=== PATIENT | female | born 1995 | race Two or more races ===

== ENCOUNTER 2023-06-09 17:44 | Emergency (ER) | payer OTHER ==
[~2023-06-09] VITALS: Ht 165.1 cm; Wt 131.5 kg
[~2023-06-09 17:44] MED LIST: FLOVENT HFA10.6 GM IH; MUCINEX SINUS-1 EAC1 PO; PROVENTIL HFA6.7 GM IH; ZITHROMAX PO
[2023-06-09 19:49] LABS: HEMOGLOBIN 12.6 g/dL (12.0-15.00); MEAN CELL VOLUME 75.3 fL (80.00-100.00); MEAN CORPUSCULAR HEMOGLOBIN 24.3 pg (27.00-32.0); MEAN CORPUSCULAR HGB CONC 32.4 g/dl (32.0-36.0); PLATELET COUNT 284 K/uL (150-450); RED BLOOD COUNT 5.18 M/uL (4.00-6.00); RED CELL DISTRIBUTION WIDTH 16.4 % (11.5-14.5)
[2023-06-09 20:15] LABS: ALBUMIN 3.6 gm/dL (3.4-5.0); BILIRUBIN TOTAL 0.44 mg/dL (0.3-1.2); CALCIUM 8.9 mg/dL (8.5-10.1); CREATININE SERUM 0.85 mg/dL (0.55-1.02); GFR 78.53; GLOBULINA 3.9 G/DL (2.4-3.5); POTASSIUM 3.56 mEq/L (3.5-5.1); TOTAL PROTEIN 7.5 gm/dL (6.4-8.2)
[2023-06-09 20:54] LABS: PH,URINE 5.5 (5.0-8.0); URINE APPEARANCE Cloudy; URINE BILIRRUBIN Negative (NEGATIVE); URINE COLOR Yellow; URINE GLUCOSE Negative (NEGATIVE); URINE LEUKOCYTE Small; URINE NITRATE Negative; URINE PROTEIN Negative (NEGATIVE); URINE UROBILINOGEN 0.2 E.U./dl
[2023-06-09 20:57] LABS: URINE BACTERIA 545.5 uL (0.0-1933); URINE EPITHELIAL CELLS 33.2 uL (0.0-38.8)
[2023-06-09 21:11] LABS: URINE BLOOD TRACE
[2023-06-09 21:13] LABS: URINE YEAST NEGATIVE /hpf
== END 2023-06-10 01:30 | disposition home or self-care (01) ==
LOC: ER 17:44
PROVIDERS: Emergency Medicine
DX: O03.9 Complete or unspecified spontaneous abortion without complication (principal)

== ENCOUNTER 2023-10-01 10:14 | Outpatient (CLI) | payer OTHER | END 2023-10-01 10:15 | disposition home or self-care (01) | LOC: PRENATAL 10:14 | PROVIDERS: ATTEND Obstetrics & Gynecology Maternal & Fetal Medicine | DX: O35.9XX0 Maternal care for (suspected) fetal abnormality and damage, unspecified, not applicable or unspecified (principal); O35.3XX0 Maternal care for (suspected) damage to fetus from viral disease in mother, not applicable or unspecified; O44.00 Complete placenta previa NOS or without hemorrhage, unspecified trimester; O99.210 Obesity complicating pregnancy, unspecified trimester; O44.10 Complete placenta previa with hemorrhage, unspecified trimester; Z3A.20 20 weeks gestation of pregnancy ==

== ENCOUNTER 2023-11-07 02:13 | Inpatient (IN) | payer OTHER ==
[~2023-11-07] VITALS: Ht 165.1 cm; Wt 135.2 kg
[2023-11-07 02:08] VITALS: BP 114/75
[2023-11-07] MEDS ORDERED: RINGERS SOLUTION,LACTATED 1,000 ML IV SCH (02:30)
[2023-11-07 03:23] LABS: PH,URINE 5.5 (5.0-8.0); URINE APPEARANCE Cloudy; URINE BILIRRUBIN Negative (NEGATIVE); URINE BLOOD Large; URINE COLOR Dark Yellow; URINE GLUCOSE Negative (NEGATIVE); URINE KETONE 15 (NEGATIVE); URINE LEUKOCYTE Negative; URINE NITRATE Negative; URINE PROTEIN Trace (NEGATIVE)
[2023-11-07 03:26] LABS: URINE BACTERIA 3573.2 uL (0.0-1933); URINE EPITHELIAL CELLS 25.8 uL (0.0-38.8); URINE RBC 1155.7 uL (0.0-20.8); URINE WBC 59.3 uL (0.0-23.2)
[2023-11-07 03:40] LABS: URINE CAST 0.15 uL (0.0-1.40)
[2023-11-07 03:43] LABS: HEMATOCRIT 33.7 % (36.0-45.00); HEMOGLOBIN 11.2 g/dL (12.0-15.00); MEAN CELL VOLUME 75.4 fL (80.00-100.00); MEAN CORPUSCULAR HGB CONC 33.1 g/dl (32.0-36.0); PLATELET COUNT 205 K/uL (150-450); RED BLOOD COUNT 4.47 M/uL (4.00-6.00); RED CELL DISTRIBUTION WIDTH 15.9 % (11.5-14.5)
[2023-11-07 03:49] LABS: PARTIAL THROMBOPLASTIN TIME 28.4 SECONDS (22.0-34.0); PROTHROMBIN TIME 10.9 SECONDS (9.0-11.5)
[2023-11-07 03:53] LABS: ALBUMIN 2.5 gm/dL (3.4-5.0); BILIRUBIN TOTAL 0.35 mg/dL (0.3-1.2); CALCIUM 8.6 mg/dL (8.5-10.1); CREATININE SERUM 0.55 mg/dL (0.55-1.02); GFR 129.78; GLOBULINA 3.7 G/DL (2.4-3.5); POTASSIUM 4.01 mEq/L (3.5-5.1); TOTAL PROTEIN 6.2 gm/dL (6.4-8.2)
[2023-11-07 04:12] VITALS: BP 102/66
[2023-11-07 06:33] VITALS: BP 102/66; O2SAT 97
[2023-11-07] MEDS ORDERED: AMPICILLIN SODIUM 2,000 MG VIAL IV SCH (08:00)
[2023-11-07] MEDS ORDERED: PRENATAL + DHA1 EAC1 PO (09:53)
[2023-11-07 12:46] VITALS: BP 119/78
[2023-11-07 14:59] VITALS: BP 119/77
[2023-11-07 18:06] VITALS: BP 100/65
[2023-11-08] VITALS: BP 101/66
[2023-11-08] MEDS ORDERED: MACROBID 100 M100 MG PO (08:35)
[2023-11-08 08:49] VITALS: BP 95/65
== END 2023-11-08 11:40 | disposition home or self-care (01) | DRG 831 ==
LOC: OB/GYN 02:13 → LDR 02:13 → OB/GYN 10:18
PROVIDERS: ADMIT Obstetrics & Gynecology; ATTEND Obstetrics & Gynecology
PROC: 4A1HXCZ Monitoring of Products of Conception, Cardiac Rate, External Approach (ICD-10-PCS; principal; 2023-11-07)
PROC: BY4CZZZ Ultrasonography of Second Trimester, Single Fetus (ICD-10-PCS; 2023-11-07)
PROC: BU4CZZZ Ultrasonography of Uterus and Ovaries (ICD-10-PCS; 2023-11-07)
DX: O46.8X2 Other antepartum hemorrhage, second trimester (principal); O60.02 Preterm labor without delivery, second trimester; O23.42 Unspecified infection of urinary tract in pregnancy, second trimester; O26.842 Uterine size-date discrepancy, second trimester; O36.8120 Decreased fetal movements, second trimester, not applicable or unspecified; O26.852 Spotting complicating pregnancy, second trimester; Z3A.26 26 weeks gestation of pregnancy; Z20.822 Contact with and (suspected) exposure to COVID-19

== ENCOUNTER 2023-11-09 23:44 | Inpatient (IN) | payer OTHER ==
[~2023-11-09] VITALS: Ht 165.1 cm; Wt 135.2 kg
[2023-11-09 23:20] VITALS: BP 112/72
[~2023-11-09 23:44] MED LIST changes: +MACROBID 100 M100 MG PO; +PRENATAL + DHA1 EAC1 PO
[2023-11-09] MEDS ORDERED: RINGERS SOLUTION,LACTATED 1,000 ML IV SCH (23:45)
[2023-11-09] MEDS ORDERED: CEFTRIAXONE SODIUM 1,000 MG VIAL IV SCH (23:45)
[2023-11-10 00:29] LABS: PH,URINE 5.5 (5.0-8.0); URINE APPEARANCE Clear; URINE BILIRRUBIN Negative (NEGATIVE); URINE BLOOD Large; URINE COLOR Yellow; URINE GLUCOSE Negative (NEGATIVE); URINE KETONE Negative (NEGATIVE); URINE LEUKOCYTE Negative; URINE NITRATE Negative; URINE PROTEIN Negative (NEGATIVE); URINE UROBILINOGEN 0.2 E.U./dl
[2023-11-10 00:31] LABS: HEMATOCRIT 33.3 % (36.0-45.00); HEMOGLOBIN 10.8 g/dL (12.0-15.00); MEAN CELL VOLUME 75.8 fL (80.00-100.00); MEAN CORPUSCULAR HEMOGLOBIN 24.6 pg (27.00-32.0); MEAN CORPUSCULAR HGB CONC 32.4 g/dl (32.0-36.0); PLATELET COUNT 209 K/uL (150-450); RED CELL DISTRIBUTION WIDTH 15.4 % (11.5-14.5)
[2023-11-10 00:32] LABS: URINE BACTERIA 161.2 uL (0.0-1933); URINE EPITHELIAL CELLS 34.9 uL (0.0-38.8); URINE RBC 482.4 uL (0.0-20.8); URINE WBC 7.8 uL (0.0-23.2)
[2023-11-10 00:33] LABS: URINE CAST 0.15 uL (0.0-1.40)
[2023-11-10 00:51] LABS: ALBUMIN 2.3 gm/dL (3.4-5.0); ALKALINE PHOSPHATASE 74 U/L (50-136); ALT/SGPT 9 U/L (12-78); ANION GAP 11 (10.0-20.0); BILIRUBIN TOTAL 0.17 mg/dL (0.3-1.2); BLOOD UREA NITROGEN 9 mg/dL (7-18); BUN CREA RATIO 14 (7.0-25.0); CALCIUM 8.7 mg/dL (8.5-10.1); CARBON DIOXIDE 24 mEq/L (21-32); CHLORIDE 109 mmol/L (98-107); CREATININE SERUM 0.63 mg/dL (0.55-1.02); GFR 110.95; GLOBULINA 3.6 G/DL (2.4-3.5); GLUCOSE FASTING 126 mg/dL (65-100); OSMOLALITY SERUM 280 MOSM/KG (275-295); POTASSIUM 3.98 mEq/L (3.5-5.1); SODIUM 140 mmol/L (136-145); TOTAL PROTEIN 5.9 gm/dL (6.4-8.2)
[2023-11-10 00:56] LABS: AST/SGOT < 3 U/L (15-37)
[2023-11-10 03:06] VITALS: BP 103/67
[2023-11-10 07:21] VITALS: BP 110/71
[2023-11-10 11:29] VITALS: BP 116/75
[2023-11-10 13:47] VITALS: BP 117/75
[2023-11-10] MEDS ORDERED: PNV,CALCIUM 72/IRON/FOLIC ACID 1 TAB TABLET PO SCH (17:00)
[2023-11-11 01:02] VITALS: BP 110/68
[2023-11-11 11:44] VITALS: BP 100/60
[2023-11-11 15:43] VITALS: BP 118/77
[2023-11-12 01:00] VITALS: BP 112/74
[2023-11-12 09:00] VITALS: BP 125/82
[2023-11-12] MEDS ORDERED: CEFTRIAXONE SODIUM 1,000 MG VIAL IV SCH (09:00)
[2023-11-12 17:36] VITALS: BP 108/71
[2023-11-12] MEDS ORDERED: ACETAMINOPHEN 500 MG GEL..CAP PO PRN (18:45)
[2023-11-13 03:03] VITALS: BP 118/73
[2023-11-13 08:00] VITALS: BP 97/60
[2023-11-13 18:54] VITALS: BP 114/70
[2023-11-14] VITALS: BP 101/66
[2023-11-14 08:39] VITALS: BP 93/60
[2023-11-14 17:43] VITALS: BP 110/72
[2023-11-15 01:58] VITALS: BP 102/66
[2023-11-15 08:00] VITALS: BP 103/67
[2023-11-15 16:00] VITALS: BP 112/68
[2023-11-16] VITALS: BP 120/72
[2023-11-16 08:00] VITALS: BP 112/80
[2023-11-16] MEDS ORDERED: OBSTETRIX ONE1 EAC1 PO (08:37)
[2023-11-16] MEDS ORDERED: AMOX1TAB5 PO (08:37)
== END 2023-11-16 10:25 | disposition home or self-care (01) | DRG 833 ==
LOC: LDR 23:44 → OB/GYN 11-10 12:22
PROVIDERS: Obstetrics & Gynecology; ADMIT Obstetrics & Gynecology; ATTEND Obstetrics & Gynecology
PROC: 4A1HXCZ Monitoring of Products of Conception, Cardiac Rate, External Approach (ICD-10-PCS; principal; 2023-11-09)
PROC: BT43ZZZ Ultrasonography of Bilateral Kidneys (ICD-10-PCS; 2023-11-10)
DX: O23.42 Unspecified infection of urinary tract in pregnancy, second trimester (principal); Z3A.27 27 weeks gestation of pregnancy; Z20.822 Contact with and (suspected) exposure to COVID-19

== ENCOUNTER → 2023-11-22 10:51 | Outpatient (CLI) | payer OTHER ==
[~2023-11-22 10:51] MED LIST changes: +AMOX1TAB5 PO; +OBSTETRIX ONE1 EAC1 PO
== END | disposition home or self-care (01) ==
LOC: PRENATAL 10:51
PROVIDERS: ATTEND Obstetrics & Gynecology Maternal & Fetal Medicine
DX: O26.849 Uterine size-date discrepancy, unspecified trimester (principal); O99.210 Obesity complicating pregnancy, unspecified trimester; O24.419 Gestational diabetes mellitus in pregnancy, unspecified control; O99.019 Anemia complicating pregnancy, unspecified trimester; Z3A.28 28 weeks gestation of pregnancy

== ENCOUNTER → 2023-12-18 10:51 | Outpatient (CLI) | payer OTHER ==
[~2023-12-18 10:51] MED LIST changes: +HUMULIN N100 UNIT/2 SUBCUTANEO
== END | disposition home or self-care (01) ==
LOC: PRENATAL 10:51
PROVIDERS: ATTEND Obstetrics & Gynecology Maternal & Fetal Medicine
DX: O26.849 Uterine size-date discrepancy, unspecified trimester (principal); O36.8199 Decreased fetal movements, unspecified trimester, other fetus; O24.419 Gestational diabetes mellitus in pregnancy, unspecified control; O99.210 Obesity complicating pregnancy, unspecified trimester; Z3A.33 33 weeks gestation of pregnancy

== ENCOUNTER 2024-01-12 21:45 | Outpatient (CLI) | payer OTHER ==
[~2024-01-12] VITALS: Ht 167.6 cm; Wt 136.5 kg
[2024-01-12 21:00] VITALS: BP 124/70
[2024-01-13] MEDS ORDERED: HUMULIN 70100 UNIT/2 SUBCUTANEO (01:35)
[2024-01-13 03:17] VITALS: BP 109/74
[2024-01-13 07:46] VITALS: BP 120/80
[2024-01-13 11:50] VITALS: BP 127/82
[2024-01-13 14:42] VITALS: BP 127/82
[2024-01-13] MEDS ORDERED: TERCONAZOLE 20 GM TUBE VAG SCH (21:00)
[2024-01-13] MEDS ORDERED: INSULIN NPH HUM/REG INSULIN HM 1,000 UNIT/10 ML UNITS SUBCUTANEO SCH (21:00)
[2024-01-13] MEDS ORDERED: INSULIN NPH HUMAN ISOPHANE 1,000 UNITS/10 ML UNITS SUBCUTANEO SCH (21:00)
== END 2024-01-13 14:42 | disposition home or self-care (01) ==
LOC: OBS/DEL 21:45
PROVIDERS: ATTEND Obstetrics & Gynecology
DX: O98.813 Other maternal infectious and parasitic diseases complicating pregnancy, third trimester (principal); O24.419 Gestational diabetes mellitus in pregnancy, unspecified control; Z3A.35 35 weeks gestation of pregnancy

== ENCOUNTER → 2024-01-15 08:39 | Outpatient (CLI) | payer OTHER ==
[~2024-01-15 08:39] MED LIST changes: +CHILDREN'S ASPI81 MG PO; +HUMULIN 70100 UNIT/2 SUBCUTANEO
== END | disposition home or self-care (01) ==
LOC: PRENATAL 08:39
PROVIDERS: ATTEND Obstetrics & Gynecology Maternal & Fetal Medicine
DX: O26.849 Uterine size-date discrepancy, unspecified trimester (principal); O36.8199 Decreased fetal movements, unspecified trimester, other fetus; O99.210 Obesity complicating pregnancy, unspecified trimester; O24.419 Gestational diabetes mellitus in pregnancy, unspecified control; Z3A.36 36 weeks gestation of pregnancy

== ENCOUNTER 2024-01-15 19:15 | Inpatient (IN) | payer OTHER ==
[~2024-01-15] VITALS: Ht 152.4 cm; Wt 138.3 kg
[2024-01-15 18:43] VITALS: BP 124/82
[~2024-01-15 19:15] MED LIST changes: -CHILDREN'S ASPI81 MG PO
[2024-01-15] MEDS ORDERED: RINGERS SOLUTION,LACTATED 1,000 ML IV SCH (19:30)
[2024-01-15 19:40] LABS: PH,URINE 5.5 (5.0-8.0); URINE APPEARANCE Cloudy; URINE BILIRRUBIN Small (NEGATIVE); URINE BLOOD Negative; URINE COLOR Dark Yellow; URINE GLUCOSE Negative (NEGATIVE); URINE KETONE Trace (NEGATIVE); URINE LEUKOCYTE Small; URINE NITRATE Negative; URINE PROTEIN Trace (NEGATIVE)
[2024-01-15 19:43] LABS: URINE BACTERIA 5498.3 uL (0.0-1933); URINE EPITHELIAL CELLS 110.8 uL (0.0-38.8); URINE RBC 7.6 uL (0.0-20.8); URINE WBC 91.2 uL (0.0-23.2)
[2024-01-15] MEDS ORDERED: ACETAMINOPHEN 500 MG GEL..CAP PO PRN (19:45)
[2024-01-15 19:47] LABS: HEMATOCRIT 34.5 % (36.0-45.00); HEMOGLOBIN 11.3 g/dL (12.0-15.00); MEAN CELL VOLUME 73.4 fL (80.00-100.00); MEAN CORPUSCULAR HEMOGLOBIN 24.1 pg (27.00-32.0); MEAN CORPUSCULAR HGB CONC 32.8 g/dl (32.0-36.0); PLATELET COUNT 216 K/uL (150-450); RED CELL DISTRIBUTION WIDTH 16.8 % (11.5-14.5)
[2024-01-15] MEDS ORDERED: CHILDREN'S ASPI81 MG PO (19:50)
[2024-01-15 19:58] LABS: INR 0.95; PARTIAL THROMBOPLASTIN TIME 26.3 SECONDS (22.0-34.0); PROTHROMBIN TIME 10.4 SECONDS (9.0-11.5)
[2024-01-15] MEDS ORDERED: BETAMETHASONE ACETATE,SOD PHOS 30 MG/5 ML ML IM ONE (20:00)
[2024-01-15 20:02] LABS: ALBUMIN 2.4 gm/dL (3.4-5.0); BILIRUBIN TOTAL 0.31 mg/dL (0.3-1.2); CALCIUM 8.3 mg/dL (8.5-10.1); CREATININE SERUM 0.65 mg/dL (0.55-1.02); GFR 107.02; GLOBULINA 3.7 G/DL (2.4-3.5); POTASSIUM 4.05 mEq/L (3.5-5.1); TOTAL PROTEIN 6.1 gm/dL (6.4-8.2)
[2024-01-15 20:16] LABS: URINE CAST 0.45 uL (0.0-1.40); URINE YEAST FEW /hpf
[2024-01-15] MEDS ORDERED: INSULIN NPH HUM/REG INSULIN HM 1,000 UNIT/10 ML UNITS SUBCUTANEO SCH (21:00)
[2024-01-16] VITALS (7 sets, daily range): BP systolic 93–122; BP diastolic 52–78; O2SAT 98–100
[2024-01-16] MEDS ORDERED: ASPIRIN 81 MG TAB.CHEW PO SCH (17:00)
[2024-01-16 19:37] LABS: URINE PROT QUANT 24HR 7.2 MG/DL
[2024-01-16 19:38] LABS: URINE PROT QUANT 24 HR 237.6 MG/24HR (42-225)
[2024-01-16] MEDS ORDERED: BETAMETHASONE ACETATE,SOD PHOS 30 MG/5 ML ML IM NR (19:40)
[2024-01-17 02:47] VITALS: BP 106/61
[2024-01-17 09:12] VITALS: BP 116/72
[2024-01-17 16:00] VITALS: BP 100/60; BP 104/69
[2024-01-17] MEDS ORDERED: FAMOTIDINE/PF 20 MG in 0.9 % SODIUM CHLORIDE 8 ML IV PUSH SCH (21:00)
[2024-01-18 01:27] VITALS: BP 102/60
[2024-01-18 09:00] VITALS: BP 121/54
== END 2024-01-18 11:41 | disposition home or self-care (01) | DRG 833 ==
LOC: LDR 19:15 → OB/GYN 01-16 19:41
PROVIDERS: ADMIT Obstetrics & Gynecology; ATTEND Obstetrics & Gynecology
PROC: 4A1HXCZ Monitoring of Products of Conception, Cardiac Rate, External Approach (ICD-10-PCS; principal; 2024-01-15)
PROC: B030ZZZ Magnetic Resonance Imaging (MRI) of Brain (ICD-10-PCS; 2024-01-17)
DX: O13.3 Gestational [pregnancy-induced] hypertension without significant proteinuria, third trimester (principal); Z3A.36 36 weeks gestation of pregnancy; Z20.822 Contact with and (suspected) exposure to COVID-19
CPT/HCPCS: 70551

== ENCOUNTER 2024-01-30 14:14 | Inpatient (IN) | payer OTHER ==
[~2024-01-30] VITALS: Ht 167.6 cm; Wt 2.7 kg
[~2024-01-30 14:14] MED LIST changes: +CHILDREN'S ASPI81 MG PO
[2024-01-30 14:28] VITALS: BP 124/65
[2024-01-30 15:18] LABS: URINE APPEARANCE Cloudy; URINE BILIRRUBIN Small (NEGATIVE); URINE BLOOD Negative; URINE COLOR Dark Yellow; URINE GLUCOSE Negative (NEGATIVE); URINE KETONE Negative (NEGATIVE); URINE LEUKOCYTE Small; URINE NITRATE Negative; URINE PROTEIN Trace (NEGATIVE)
[2024-01-30 15:22] LABS: URINE WBC 22.4 uL (0.0-23.2)
[2024-01-30 15:28] LABS: HEMATOCRIT 33.8 % (36.0-45.00); MEAN CELL VOLUME 78.1 fL (80.00-100.00); MEAN CORPUSCULAR HEMOGLOBIN 25.5 pg (27.00-32.0); MEAN CORPUSCULAR HGB CONC 32.6 g/dl (32.0-36.0); PLATELET COUNT 203 K/uL (150-450); RED BLOOD COUNT 4.33 M/uL (4.00-6.00)
[2024-01-30] MEDS ORDERED: RINGERS SOLUTION,LACTATED 1,000 ML IV SCH (15:30)
[2024-01-30 15:31] LABS: RED CELL DISTRIBUTION WIDTH 21.6 % (11.5-14.5)
[2024-01-30 15:35] VITALS: BP 133/72
[2024-01-30 15:36] LABS: INR 0.96; PROTHROMBIN TIME 10.5 SECONDS (9.0-11.5)
[2024-01-30 15:41] LABS: ALBUMIN 2.6 gm/dL (3.4-5.0); BILIRUBIN TOTAL 0.64 mg/dL (0.3-1.2); CREATININE SERUM 0.76 mg/dL (0.55-1.02); GFR 89.36; GLOBULINA 3.9 G/DL (2.4-3.5); POTASSIUM 4.26 mEq/L (3.5-5.1); TOTAL PROTEIN 6.5 gm/dL (6.4-8.2)
[2024-01-30 15:49] LABS: URINE BACTERIA > 9821.5 uL (0.0-1933); URINE CAST 1.17 uL (0.0-1.40); URINE MUCUS MODERATE
[2024-01-30] MEDS ORDERED: MISOPROSTOL 25 MCG TABLET VAG ONE (19:30)
[2024-01-30 20:11] VITALS: BP 138/65
[2024-01-30 23:15] VITALS: BP 111/41
[2024-01-31 03:33] VITALS: BP 132/55
[2024-01-31 07:33] VITALS: BP 103/58
[2024-01-31] MEDS ORDERED: OXYTOCIN 500 ML IV SCH (07:45)
[2024-01-31] MEDS ORDERED: PROMETHAZINE HCL 25 MG/ML AMPUL IV NR (13:00)
[2024-01-31] MEDS ORDERED: MEPERIDINE HCL/PF 50 MG/ML VIAL IV ONE (13:00)
[2024-01-31 14:06] VITALS: BP 138/62
[2024-01-31 15:39] VITALS: BP 146/58
[2024-01-31] MEDS ORDERED: CEFOXITIN SODIUM 2,000 MG VIAL IV STA (17:15)
[2024-01-31] MEDS ORDERED: OXYTOCIN 1,000 ML IV SCH (17:45)
[2024-01-31] MEDS ORDERED: SIMETHICONE 125 MG CAPSULE PO SCH (18:00)
[2024-01-31] MEDS ORDERED: PROMETHAZINE HCL 25 MG/ML AMPUL IV PRN (18:00)
[2024-01-31] MEDS ORDERED: ERYTHROMYCIN BASE OPHT 1GM EACH TUBE OP ONE (18:00)
[2024-01-31] MEDS ORDERED: OXYTOCIN 10 UNITS/ML VIAL IV ONE (18:00)
[2024-01-31] MEDS ORDERED: MEPERIDINE HCL/PF 50 MG/ML VIAL IV PRN (18:00)
[2024-01-31] MEDS ORDERED: MORPHINE SULFATE 4 MG/ML VIAL IV ONE ×3 (18:50→20:35)
[2024-01-31] MEDS ORDERED: MEPERIDINE HCL 25 MG/ML AMPUL IV ONE (20:05)
[2024-01-31 22:02] LABS: HEMATOCRIT 33.8 % (36.0-45.00); HEMOGLOBIN 10.9 g/dL (12.0-15.00); MEAN CELL VOLUME 80.1 fL (80.00-100.00); MEAN CORPUSCULAR HGB CONC 32.4 g/dl (32.0-36.0); PLATELET COUNT 164 K/uL (150-450); RED BLOOD COUNT 4.21 M/uL (4.00-6.00); RED CELL DISTRIBUTION WIDTH 21.7 % (11.5-14.5)
[2024-01-31 22:51] VITALS: BP 119/71
[2024-02-01 01:49] VITALS: BP 90/60
[2024-02-01 08:51] VITALS: BP 105/71
[2024-02-01] MEDS ORDERED: NAPROXEN 500 MG TABLET PO SCH (09:00)
[2024-02-01] MEDS ORDERED: ACETAMINOPHEN WITH CODEINE 1 UDTAB TABLET PO PRN (09:15)
[2024-02-01 17:21] VITALS: BP 112/75
[2024-02-02 00:18] VITALS: BP 97/55
[2024-02-02 13:43] VITALS: BP 123/77
[2024-02-02] MEDS ORDERED: FAMOtidine 20 MG TABLET PO NR (14:00)
[2024-02-02 16:00] VITALS: BP 112/69
[2024-02-03] VITALS: BP 118/77
[2024-02-03] MEDS ORDERED: NAPR500T14 PO (06:45)
[2024-02-03] MEDS ORDERED: Tylenol #3 PO (06:45)
[2024-02-03 08:13] VITALS: BP 112/72
[2024-02-03] MEDS ORDERED: FAMOtidine 20 MG TABLET PO SCH (09:00)
== END 2024-02-03 17:47 | disposition home or self-care (01) | DRG 788 ==
LOC: O/R 14:14 → LDR 14:14 → O/R 01-31 17:24 → OB/GYN 01-31 19:03
PROVIDERS: ADMIT Obstetrics & Gynecology; ATTEND Obstetrics & Gynecology
PROC: 3E0P7VZ Introduction of Hormone into Female Reproductive, Via Natural or Artificial Opening (ICD-10-PCS; 2024-01-30)
PROC: 4A1HXCZ Monitoring of Products of Conception, Cardiac Rate, External Approach (ICD-10-PCS; 2024-01-30)
PROC: 3E033VJ Introduction of Other Hormone into Peripheral Vein, Percutaneous Approach (ICD-10-PCS; 2024-01-31)
PROC: 10D00Z1 Extraction of Products of Conception, Low, Open Approach (ICD-10-PCS; principal; 2024-01-31 20:30)
DX: O62.0 Primary inadequate contractions (principal); O36.8130 Decreased fetal movements, third trimester, not applicable or unspecified; Z3A.38 38 weeks gestation of pregnancy; Z37.0 Single live birth; Z20.822 Contact with and (suspected) exposure to COVID-19